=== PATIENT | female | born 1970 ===

== ENCOUNTER 2018-09-12 22:45 | Emergency (ER) | payer BC ==
[2018-09-12 22:45] VITALS: BMI 24.6
[2018-09-12 23:03] VITALS: RESP 18
[2018-09-12] MEDS ORDERED: Alum-Mag Hydrox-Simethicone Susp (30 mL) PO ONE (23:27)
--- NOTE | 2018-09-12 23:34 | ED PDOC ---
HPI: Abdomen Time Seen by Provider: 09/12/18 23:09 Chief Complaint (Nursing): Abdominal Pain History Per: Patient Onset/Duration Of Symptoms: Hrs Current Symptoms Are (Timing): Still Present Location Of Pain/Discomfort: Epigastric Associated Symptoms: Nausea, Vomiting, Back Pain Additional Complaint(s): Hx of HTN, thyroid disease presenting with abdominal pain and back pain, states it started this morning with burning pain in epigastric area radiating bilaterally towards the back. States it was associated with one episode of nausea and vomiting and hasn't been able to eat all day. Denies urinary symptoms, change in stool pattern, fevers. Past Medical History Reviewed: Historical Data, Nursing Documentation, Vital Signs Vital Signs: Last Vital Signs Temp 98.1 F 09/12/18 22:59 Pulse 104 H 09/12/18 22:59 Resp 18 09/12/18 22:59 BP 188/109 H 09/12/18 22:59 Pulse Ox 99 09/12/18 22:59 - Medical History PMH: Anemia, Hypothyroidism Denies: HIV, Chronic Kidney Disease - Family History Family History: States: Unknown Family Hx - Home Medications Home Medications: Ambulatory Orders Medication Instructions Recorded Levothyroxine [Synthroid] 1 tab PO DAILY 01/11/17 Docusate Sodium/Ferrous Fumara 1 tab PO BID #60 tab 01/13/17 [Catrachita-Sequels 100 mg -150 mg] Levothyroxine [Synthroid] 200 mcg PO DAILY@0630 tab 01/13/17 - Allergies Allergies/Adverse Reactions: Allergies Allergy/AdvReac Type Severity Reaction Status Date / Time No Known Allergies Allergy Verified 09/12/18 22:58 Review of Systems ROS Statement: Except As Marked, All Systems Reviewed And Found Negative Gastrointestinal: Positive for: Nausea, Vomiting, Abdominal Pain Physical Exam - Reviewed Nursing Documentation Reviewed: Yes Vital Signs Reviewed: Yes - Physical Exam Appears: Positive for: Well, Non-toxic, No Acute Distress Head Exam: Positive for: ATRAUMATIC, NORMAL INSPECTION, NORMOCEPHALIC Skin: Positive for: Normal Color, Warm, DRY Eye Exam: Positive for: EOMI, Normal appearance, PERRL ENT: Positive for: Normal ENT Inspection Neck: Positive for: Normal, Painless ROM Cardiovascular/Chest: Positive for: Regular Rate, Rhythm Respiratory: Positive for: CNT, Normal Breath Sounds Gastrointestinal/Abdominal: Positive for: Normal Exam, Soft, Tenderness (Epigastric tenderness) Back: Positive for: Normal Inspection Extremity: Positive for: Normal ROM Neurologic/Psych: Positive for: Alert, Oriented - Laboratory Results Result Diagrams: 09/12/18 23:35 09/12/18 23:35 - ECG O2 Sat by Pulse Oximetry: 99 Pulse Ox Interpretation: Normal Medical Decision Making Medical Decision MakinPM Patient presenting with epigsatric pain and back pain --Very well appearing, nontoxic, normal vitals --Tenderness in epigsatric region --Differential includes but not limited to: gastritis, pancreatitis, colitis, GERD --Will give GI cocktail, check labs, and re-eval 0500 --Patient is feeling much better, no RUQ tenderness --CT shows acute cholecystitis --Case discussed with surgical clinical reviewer who recommends U/S 0700 --Will endorse to Dr. Leyva pending U/S and final dispo Disposition - Clinical Impression Clinical Impression: Epigastric pain - Disposition Disposition: Transfer of Care Disposition Time: 07:00 Condition: STABLE Forms: [employer] (Ukrainian) Patient Signed Over To: Rosa Leyva Handoff Comments: pending U/S - Pt Status Changed To: Hospital Disposition Of: Inpatient - Admit Certification Admit to Inpatient:: After my assessment, the patient will require hospitalization for at least two midnights. This is because of the severity of symptoms shown, intensity of services needed, and/or the medical risk in this patient being treated as an outpatient.
[2018-09-12] MEDS ORDERED: Alum-Mag Hydrox-Simethicone Susp (30 mL) ONE (23:52)
[2018-09-13 00:04] LABS: HEMOGLOBIN 13.8 g/dL (12.0-16.0); MEAN CORPUSCULAR HEMOGLOBIN 25.9 pg (27.0-31.0); MEAN CORPUSCULAR HGB CONC 32.4 g/dL (33.0-37.0); RBC 5.35 Mil/uL (3.80-5.20); RED CELL DISTRIBUTION WIDTH 15.7 % (11.5-14.5); WHITE BLOOD COUNT 10.8 K/uL (4.8-10.8)
[2018-09-13 00:07] LABS: ALB/GLOB RATIO 1.1 (1.0-2.1); ALBUMIN 4.7 g/dL (3.5-5.0); ALT/SGPT 91 U/L (9-52); AST/SGOT 113 U/L (14-36); BLOOD UREA NITROGEN 8 mg/dl (7-17); CALCIUM 9.7 mg/dL (8.4-10.2); GFR NON-AFRICAN AMERICAN > 60; LIPASE 51 U/L (23-300)
[2018-09-13] MEDS ORDERED: Iohexol 240 (50 ml) PO ONE (01:26)
[2018-09-13] MEDS ORDERED: Sodium Chloride 0.9% 1,000 ML IV STA (01:26)
[2018-09-13] MEDS ORDERED: Iohexol 240 (50 ml) ONE (01:32)
[2018-09-13] MEDS ORDERED: Iohexol 300 100 ML IJ ONE (04:53)
[2018-09-13] MEDS ORDERED: Sodium Chloride 0.9% 50 ML IV ONE (04:54)
--- NOTE | 2018-09-13 09:38 | US ---
Date of service: 09/13/2018 HISTORY: acute cholecystitis on CT COMPARISON: Correlation is made to CT scan of the abdomen pelvis performed earlier the same day. TECHNIQUE: Sonographic evaluation of the right upper quadrant of the abdomen. FINDINGS: LIVER: Measures 19.8 cm in length. Increased echogenicity of the liver parenchyma. No mass. No intrahepatic bile duct dilatation. GALLBLADDER: Mobile cholelithiasis without gallbladder wall thickening/edema or pericholecystic fluid. Sonographic Hair's sign was not elicited. COMMON BILE DUCT: Measures 4 mm. No stones. No dilatation. PANCREAS: Unremarkable as visualized. No mass. No ductal dilatation. RIGHT KIDNEY: Measures 10.8 x 5.6 x 3.8 cm in length. Normal echogenicity. No calculus, mass, or hydronephrosis. AORTA: No aneurysmal dilatation. IVC: Unremarkable. OTHER FINDINGS: None . IMPRESSION: Hepatomegaly with steatosis. Cholelithiasis without sonographic evidence for acute cholecystitis. If there is strong clinical concern for acute cholecystitis. Nuclear medicine hepatobiliary scan can be obtained to further evaluate patency of the cystic duct.
--- NOTE | 2018-09-13 09:41 | ED PDOC ---
- Laboratory Results Result Diagrams: 09/12/18 23:35 09/12/18 23:35 - ECG O2 Sat by Pulse Oximetry: 98 Medical Decision Making Medical Decision Making: received patient from Dr. Livingston. Patient is without discomfort. Exam is normal (no tenderness in the RUQ or epigastric area). US shows cholelithiasis. Disposition Doctor Will See Patient In The: Office Counseled Patient/Family Regarding: Diagnosis, Need For Followup - Clinical Impression Clinical Impression: Epigastric pain, Cholelithiasis - POA Present On Arrival: None - Disposition Referrals: Go Kraus MD [Family Provider] - EulaPERORA [facility] [place] [Outside] Disposition: Routine/Home Disposition Time: 09:15 Condition: IMPROVED Prescriptions: Sucralfate [Carafate] 1 gm PO QID PRN #40 dose PRN Reason: Pain, Moderate (4-7) Instructions: Gallstones, Stomach Ache and Stomach Upset Forms: [employer] ([place]), [facility] ED School/Work Excuse
[2018-09-13 09:51] VITALS: BP 140/88; PULSE 88; TEMP 98; O2SAT 99
--- NOTE | 2018-09-13 12:09 | CT ---
Date of service: 09/13/2018 PROCEDURE: CT Abdomen and Pelvis with contrast HISTORY: epig pain, vomiting COMPARISON: CT scan of the abdomen pelvis dated 01/12/2017 TECHNIQUE: Contrast dose: 90 mL Omnipaque 300 Radiation dose: Total exam DLP = 432.3 mGy-cm. This CT exam was performed using one or more of the following dose reduction techniques: Automated exposure control, adjustment of the mA and/or kV according to patient size, and/or use of iterative reconstruction technique. FINDINGS: LOWER THORAX: Cardiomegaly. No focal consolidation or pleural effusion. LIVER: Diffuse hepatic steatosis areas of fatty sparing. Hepatomegaly. No gross lesion or ductal dilatation. GALLBLADDER AND BILE DUCTS: Distended gallbladder with questionable areas of wall thickening/edema. PANCREAS: Unremarkable. No gross lesion or ductal dilatation. SPLEEN: Unremarkable. ADRENALS: Unremarkable. No mass. KIDNEYS AND URETERS: Unremarkable. Right upper pole cortical scarring versus persistent lobulation. No hydronephrosis. No solid mass. VASCULATURE: Unremarkable. No aortic aneurysm. No aortic atherosclerotic calcification or mural plaque present. BOWEL: Unremarkable. No obstruction. No gross mural thickening. APPENDIX: Normal appendix. PERITONEUM: Tiny fat containing umbilical hernia. No free fluid. No free air. LYMPH NODES: Unremarkable. No enlarged lymph nodes. BLADDER: Unremarkable. REPRODUCTIVE: Unremarkable. BONES: No acute fracture. OTHER FINDINGS: None. IMPRESSION: Hepatomegaly with steatosis. Distended gallbladder with questionable areas of wall thickening/edema which can be seen in the setting of acute cholecystitis. Gallbladder ultrasound is recommended for further evaluation. Additional findings as above.
== END 2018-09-13 10:02 | disposition home or self-care (01) ==
LOC: H.ER 22:45
DX: R10.13 Epigastric pain (principal); E03.9 Hypothyroidism, unspecified
CPT/HCPCS: 74177; 76705; 80053; 81025; 83690; 85027; 96360; 99284; J2765; J7030; Q9966; Q9967